=== PATIENT | male | born 1955 | race Hispanic/Latino ===

== ENCOUNTER 2017-03-25 08:21 | Day surgery (SDC) | payer BC ==
[2017-03-25 09:17] LABS: Eosinophils % (Auto) 3.4 % (0.0-4.3); Hematocrit 44.8 % (35.5-45.6); Hemoglobin 15.3 gm/dl (11.8-15.2); Mean Corpuscular HGB Conc 34 % (32-34); Mean Corpuscular Hemoglobin 32 pg (28-32); Mean Corpuscular Volume 94 fl (84-94); Red Blood Count 4.78 M/mm3 (3.65-5.03); White Blood Count 4.1 K/mm3 (4.5-11.0)
[2017-03-25 09:28] LABS: INR 1.21 (0.87-1.13)
[2017-03-25 09:32] LABS: Platelet Count 66 K/mm3 (140-440)
[2017-03-25] MEDS ORDERED: SUBLIMAZE IV ONE (09:43)
[2017-03-25] MEDS ORDERED: VERSED IV ONE (09:43)
--- NOTE | 2017-03-25 10:29 | Short Stay Summary ---
Short Stay Documentation Date of service: 03/25/17 - History Principal diagnosis: Hep C - Allergies and Medications Current Medications: Allergies No Known Allergies Allergy (Unverified 03/25/17 08:21) Home Medications Medication Instructions Recorded Confirmed Last Taken Type Brimonidine Tartrate [Brimonidine 1 drop INTRAOCULA BID 03/25/17 03/25/17 History Tartrate 0.2%] 1 drop Finasteride [Proscar] 5 mg PO QDAY 03/25/17 03/25/17 03/24/17 History 5mg Latanoprost 0.005% [Xalatan 0.005%] 1 drop OP QPM 03/25/17 03/25/17 03/24/17 History 1 drop - Physical exam General appearance: no acute distress - Brief post op/procedure progress note Date of procedure: 03/25/17 Pre-op diagnosis: Hep C Post-op diagnosis: same Anesthesia: local Surgeon: ANGELIQUE LEUNG Estimated blood loss: none Specimen disposition: to lab Condition: stable - Disposition Condition at discharge: Good Disposition: DISCHARGED TO HOME OR SELFCARE Short Stay Discharge Plan Follow up with: ORLY RODRIGUEZ MD [Primary Care Provider] - 7 Days
--- NOTE | 2017-03-25 11:04 | Cat Scan Report ---
CT-guided liver biopsy. History: Hepatitis C. Procedure: The patient's skin surface overlying the right abdomen was prepped and draped using sterile technique. Local anesthetic was injected into the skin. Using CT guidance, a 17-gauge sheath needle was advanced into the lateral aspect of the right lobe of the liver. A single pass was made using an 18-gauge biopsy done. Adequate tissue was obtained. Intravenous conscious sedation was used during the procedure which was well tolerated by the patient clinically. Independent cardiorespiratory monitoring was performed by the outpatient procedure nurse for 15 minutes, supervised by me. The patient was sent to the outpatient procedure unit for short term observation prior to discharge.
[2017-03-25 13:19] VITALS: BP 121/64
== END 2017-03-25 13:10 | disposition home or self-care (01) ==
LOC: OPU 08:21 → EDSTATUS 08:30 → OPU 13:10
DX: B18.2 Chronic viral hepatitis C (principal)
CPT/HCPCS: 36415; 47000; 77012; 85025; 85610; 88307; 88313; J2250; J3010